=== PATIENT | male | born 1970 | race Caucasian/White ===

== ENCOUNTER 2018-05-18 17:47 | Emergency (ER) | payer OTHER ==
[~2018-05-18] VITALS: Ht 170.2 cm; Wt 90.7 kg
[2018-05-18] MEDS ORDERED: CENTANY30 GM TOP (18:22)
[2018-05-18] MEDS ORDERED: TRAMADOL 50 MG50 MG PO (18:45)
[2018-05-18 18:53] VITALS: BP 150/97
== END 2018-05-18 18:54 | disposition home or self-care (01) ==
LOC: M.ERS 17:47 → EDSEX 17:47 → M.ERS 18:54
DX: S81.811A Laceration without foreign body, right lower leg, initial encounter (principal); W45.8XXA Other foreign body or object entering through skin, initial encounter; Y93.89 Activity, other specified; Y92.89 Other specified places as the place of occurrence of the external cause; Y99.8 Other external cause status